=== PATIENT | male | born 1950 | race Caucasian/White ===

== ENCOUNTER 2020-03-27 19:56 | Emergency (ER) | payer MEDICARE, SELFPAY ==
--- NOTE | ~2020-03-27 | CT_ITS ---
EXAMINATION: CTA BRAIN/CAROTID DATE: 03/27/2020 22:29 INDICATION: Visual disturbance TECHNIQUE: Computed tomographic angiography (CTA) of the head and neck was performed with 100 mL Omni paque-350 intravenous contrast. Multiplanar reconstructions and maximum intensity projection 3D-recon structions of the carotid arteries and of the intracranial arteries were created by the technologist on a separate workstation. Precontrast CT of the head was also obtained. Automated exposure control and iterative reconstruction technique were employed.The dose-length product was 1634.42 mGy-cm. COMPARISON: 11/26/2017 FINDINGS: Carotid arteries: There is 10% stenosis of the right carotid bulb relative to normal distal artery lumen diameter (NASC ET criteria). Small amount of atherosclerotic plaque with 0% stenosis of the left carotid bulb relati ve to normal distal artery lumen diameter. Right vertebral artery is dominant. The left vertebral art zena arises directly from the aortic arch to normal anatomic variant. Cervical soft tissues are unrema rkable. Multilevel severe bilateral cervical facet osteoarthritis. Mosaic attenuation in the bilatera l upper lung zones consistent with atelectasis related to expiratory phase of imaging and small regio ns of subsegmental air trapping related to small airway disease. Head: No acute intracranial hemorrhage, acute infarction or abnormal extra axial fluid collection. Ventricl es are normal and symmetric. No mass/mass effect. No abnormally enhancing brain lesions. Changes of b ilateral intraocular lens replacement. Mild mucosal thickening in the bilateral maxillary and right s phenoid sinuses. Trace left mastoid effusion. Intracranial arteries There is no hemodynamically significant stenosis in the vertebral, basilar and internal carotid arter ies. Vertebral arteries are codominant. There are no aneurysms identified. The bilateral A1 and P1 se gments are patent. The right P1 segment is diminutive with majority of flow to the right posterior ce rebral artery likely supplied by the larger caliber right posterior communicating artery. Cerebral ar terial arborization appears symmetric. IMPRESSION: 1. 10% stenosis of the right carotid bulb relative to normal distal artery lumen diameter (NASCET cri teria). 2. Small amount of plaque with 0% stenosis of the left carotid bulb relative to normal distal artery lumen diameter. 3. Unremarkable cerebral angiogram with no acute intracranial process. Reviewed, dictated and finalized at location A. IMPRESSION: 1. 10% stenosis of the right carotid bulb relative to normal distal artery lume n diameter (NASCET criteria). 2. Small amount of plaque with 0% stenosis of the left carotid bulb relative to normal distal artery lumen diameter. 3. Unremarkable cerebral angiogram with no acute intracranial process.
[2020-03-27 20:00] VITALS: BP 159/74; PULSE 89; RESP 19; TEMP 36.4; O2SAT 98
[2020-03-27 20:51] LABS: Basophils Absolute Auto 0.1 K/mm3 (0.0-0.1); Basophils Percent Auto 0.8 % (0.2-1.2); Eosinophils Absolute Auto 0.5 K/mm3 (0-0.3); Hematocrit 42.2 % (42.0-52.0); Hemoglobin 13.5 g/dL (14.0-18.0); Immature Granulocyte Absolute 0.09 K/mm3 (0.00-0.031); Immature Granulocyte Percent A 0.7 % (0-0.5); Lymphocytes Absolute Auto 3.79 K/mm3 (0.9-3.2); Lymphocytes Percent Auto 28.6 % (18.3-44.2); Mean Corpuscular Hemoglobin 28.2 pg (26-34); Mean Corpuscular Volume 88.1 fl (80-100); Mean Platelet Volume 12.1 fl (7.4-10.4); Monocytes Absolute Auto 0.7 K/mm3 (0.1-0.6); Monocytes Percent Auto 5.2 % (2.6-8.5); Neutrophils Absolute Auto 8.1 K/mm3 (1.3-6.7); Neutrophils Percent Auto 60.7 % (45.5-73.1); Platelet Count Result 215 k/mm3 (150-375); Red Blood Count 4.79 M/mm3 (4.6-6.20); Red Cell Distribution Width 14.5 % (11.5-14.5); White Blood Count 13.3 K/mm3 (4.5-10.0)
[2020-03-27 21:05] LABS: Alanine Aminotransferase 23 U/L (4-50); Albumin Level 4.4 g/dL (3.5-5.1); Alkaline Phosphatase 125 U/L (38-126); Anion Gap 10 mmol/L (8-16); Aspartate Amino Transferase 23 U/L (17-59); Bilirubin,Total 0.2 mg/dL (0.2-1.3); Blood Urea Nitrogen 25 mg/dL (9-20); CRP < 0.5 mg/dL (<1.0); Calcium 8.9 mg/dL (8.4-10.2); Carbon Dioxide 23 mmol/L (22-30); Chloride 106 mmol/L (98-107); Estimated CRCL calculation 42 ml/min; Estimated Glomerular Filt Rate 43; Glucose 218 mg/dL (75-110); Potassium 4.6 mmol/L (3.4-5.0); Sodium 139 mmol/L (137-145)
[2020-03-27 21:16] LABS: Erythrocyte Sedimentation Rate 20 mm/hr (0-20)
--- NOTE | 2020-03-27 21:32 | ECG_ITS ---
Measurements Intervals [place] Rate: 79 P: 47 TX: 214 QRS: 38 QRSD: 98 T: 46 QT: 348 QTc: 401 Interpretive Statements SINUS RHYTHM WITH FIRST DEGREE AV BLOCK DELAYED PRECORDIAL R/S TRANSITION BASELINE ARTIFACT- AVR, AVL, AVF ABNORMAL ECG Electronically Signed On 03-28-2020 7:06:37 CDT by Miguel Ambrosio D.O.
--- NOTE | 2020-03-27 21:38 | PC.NURSE ---
called Adrienne in Lab to add on bloodwork.
--- NOTE | 2020-03-27 21:39 | ED.GENADULT ---
HPI - General Adult General Chief complaint: Eye Problems Stated complaint: eye problems, sent for blood test Time Seen by Provider: 03/27/20 21:23 Source: patient History of Present Illness HPI narrative: Patient is a 69 y/o male complaining of right eye lower visual field going black since 3 days ago. He states that his right lower lower vision still has not come back. There is no alleviating or exacerbating factor. He no headache, eye pain, weakness/numbness in arms or legs. He had recent cataract surgery done at [facility]. He was seen by Dr. Tran (Ophthalmology at [facility]) today for follow up. He was directed by Dr. Tran to come to ED for further evaluation of possible temporal arteritis. Related Data Allergies Allergy/AdvReac Type Severity Reaction Status Date / Time No Known Allergies Allergy Mild Verified 11/03/10 12:29 Review of Systems Constitutional: Constitutional: Denies chills, Denies fever(s), Denies headache(s) and Denies weakness Eyes: Eyes: Reports blurry vision ENT: Denies headache(s) and Denies neck pain Cardiovascular: Cardiovascular: Denies chest pain and Denies dyspnea Respiratory: Respiratory: Denies cough and Denies dyspnea Gastrointestinal: Gastrointestinal: Denies abdominal pain, Denies diarrhea, Denies nausea and Denies vomiting Genitourinary: Genitourinary: Denies hematuria and Denies dysuria Musculoskeletal: Musculoskeletal: Denies back pain and Denies neck pain Neurologic: Denies headache(s) and Denies weakness PMFSH Family History Family History Father Family history of heart disease in male family member before age 55, Onset Age: 83 Patient's father is Mother Patient's mother is Other Diabetes mellitus Family history of elevated blood lipids Hypertension Social History Social History Smoking status: Never smoker Alcohol intake: never Gender identity (if verbalized by the patient): Male Exam Const: General: no acute distress and well developed Orientation/consciousness: oriented to person, oriented to place, oriented to time and patient oriented x3 HENMT: Head: normocephalic Ears: external ears normal General nose exam: Normal external nose present Eyes: General: appearance normal, both eyes and all related structures Visual Raphael: abnormal by confrontation lower outer visual field cut right Conjunctivae: conjunctivae normal Neck: Neck: normal visual inspection and full ROM Chest: Chest palpation & inspection: normal inspection of the chest and no tenderness Resp: Effort & Inspection: normal respiratory effort Auscultation: clear to auscultation bilaterally Cardio: Rate: regular rate Rhythm: regular rhythm GI: GI Palp: No abdominal tenderness and Yes Soft to palpation Skin: General skin exam: normal color and turgor normal Neuro: General: oriented to person, oriented to place, oriented to time and patient oriented x3 Cognition (Neuro): normal cognition Speech: normal speech Motor exam (neuro): 5/5 motor strength present throughout Sensory Exam: normal sensation Extrem: General: normal to inspection, full ROM and no pedal edema Psych: Appearance: grossly normal Mental Status: mental status grossly normal Affect: normal affect Course Reevaluation(s) Reevaluation #1: Rechecked. Patient's condition is unchanged. Offered to admit for stroke work up. He states that he does not want to be admitted. He will follow up with doctor for outpatient work up. Date: 03/27/20 Time: 23:30 Consultations Consultation #1: Discussed with Dr. Tran (ophthalmology at [facility]), she states that she will arrange for outpatient MRI etc. for further work up. No further recommendation at this time. Date: 03/27/20 Time: 23:35 Vital Signs Vital signs: Vital Signs Temperature 36.4 C 03/27/20 20:00 Pulse Rate 89 03/27/20 20:00 Respiratory Rat
[2020-03-27 22:23] LABS: INR 1.1; Prothrombin Time 13.4 Seconds (11.1-14.7)
[2020-03-27 22:24] LABS: Partial Thromboplastin Time 29.6 SECONDS (22.3-36.8)
[2020-03-27 23:47] VITALS: BP 148/96; PULSE 84; RESP 16; TEMP 36.7; O2SAT 97
== END 2020-03-27 23:48 | disposition home or self-care (01) ==
PROVIDERS: General Practice; Emergency Provider Emergency Medicine
DX: H53.9 Unspecified visual disturbance (principal)
CPT/HCPCS: 36415; 70496; 70498; 80053; 85025; 85610; 85652; 85730; 86140; 93005; 99284; Q9967

== ENCOUNTER 2021-03-13 17:48 | Emergency (ER) | payer MEDICARE, SELFPAY ==
[2021-03-13 17:55] VITALS: BP 145/78; PULSE 87; RESP 18; TEMP 36.7; O2SAT 98
--- NOTE | 2021-03-13 18:46 | ED.LOWEXIN ---
HPI - Extremity Injury (Lower) General Chief Complaint: Extremity Injury, Lower Stated Complaint: GOUT Source: patient and RN notes reviewed Mode of arrival: ambulatory Limitations: no limitations History of Present Illness HPI Narrative: This is a 70-year-old male who presented to urgent care with complaints of right posterior ankle pain. Patient does have a history of gout. He notes that it started a couple of days ago he did not do anything at home to resolve his signs and symptoms. He also notes that he has been having nausea with a headache for the last couple of days. The patient denies SOB, CP, palpitation, extremity numbness, lightheadedness, dizziness, constipation, diarrhea, chills, or fever. Patient will be treated for gout and instructed to use [id number] medication for viral gastritis Related Data Home Medications Medication Instructions Recorded Confirmed aspirin 03/13/21 empagliflozin [Jardiance] mg 03/13/21 insulin degludec [Tresiba unit SUBCUT 03/13/21 FlexTouch U-200] lisinopril 03/13/21 metformin mg PO 03/13/21 omeprazole 03/13/21 rosuvastatin mg 03/13/21 Allergies Allergy/AdvReac Type Severity Reaction Status Date / Time No Known Allergies Allergy Mild Verified 11/03/10 12:29 Review of Systems Review of Systems: A 14 organ system Review of Systems was performed and pertinent positives included in the HPI, otherwise remaining ROS is negative. [facility] Family History Family History Father Family history of heart disease in male family member before age 55, Onset Age: 83 Patient's father is Mother Patient's mother is Other Diabetes mellitus Family history of elevated blood lipids Hypertension Social History Social History Smoking status: Never smoker Alcohol intake: never Gender identity (if verbalized by the patient): Male Exam Narrative: GENERAL: This is a well-nourished, well-developed patient, in no apparent distress. HEAD: normocephalic, atraumatic. EYES: PERRL. Sclera clear/white. Vision is grossly intact. EARS: External ears normal, auditory canals clear and without drainage, TMs normal without perforation. Hearing grossly intact. NOSE: External nose normal with no obvious nasal discharge, nares without redness, no rhinorrhea. THROAT: Mucous membranes moist, posterior pharynx clear. NECK: Neck supple, non-tender without lymphadenopathy, masses or thyromegaly. CARDIOVASCULAR: Regular rate and rhythm without murmurs, gallops, or rubs. RESPIRATORY: Clear to auscultation. Breath sounds equal bilaterally. No wheezes, rales, or rhonchi. GASTROINTESTINAL: Abdomen soft, non-tender, nondistended. Bowel sounds are active. No hepato-splenomegaly, or palpable masses. No guarding. SKIN: warm, intact with no suspicious lesions or rash, good texture and turgor. NEURO: awake, alert, and oriented to person, place and time. There were no obvious focal neurologic abnormalities. Steady gait EXTREMITIES: Limited range of motion to the right ankle with edema and erythematous warm to touch . No calf tenderness. Negative Homans sign bilaterally. BACK: Nontender without deformity or crepitance. No flank tenderness. Course Course Emergency Course: Patient being treated for gout and viral gastritis Vital Signs Vital signs: Vital Signs Temperature 98.1 F 03/13/21 17:55 Pulse Rate 87 03/13/21 17:55 Respiratory Rate 18 03/13/21 17:55 Blood Pressure 145/78 H 03/13/21 17:55 Pulse Oximetry 98 03/13/21 17:55 Temperature 98.1 F 03/13/21 17:55 Pulse Rate 87 03/13/21 17:55 Respiratory Rate 18 03/13/21 17:55 Blood Pressure 145/78 H 03/13/21 17:55 Pulse Oximetry 98 03/13/21 17:55 MDM - Extremity Injury (Lower) Differential Diagnosis Differential diagnosis: Likely other (Gout, sprain or strain ankle, viral
== END 2021-03-13 19:06 | disposition home or self-care (01) ==
PROVIDERS: Emergency Provider Nurse Practitioner
DX: B34.9 Viral infection, unspecified (principal); M10.9 Gout, unspecified
CPT/HCPCS: 99213; G0463